=== PATIENT | female | born 1940 | race Caucasian/White ===

== ENCOUNTER → 2016-05-18 | Outpatient (CLI) | payer MEDICARE, BC ==
[~2016-05-18] MED LIST: ALPR0.25 PO; ATOR20TA58 PO; CONTRAST GIVEN MC PRN; ESCI20TA PO; GLIM2TAB2 PO; IOHEXOL 300 MG/ML 50 ML VIAL. IT ONE; LIDOCAINE 1% Multi-Dose 20 ML VIAL. ID ONE; PANT40TA5 PO; QUIN10TA7 PO; SITA100T PO; SOLI10TA PO; ZONI100C PO
--- NOTE | 2016-05-18 11:26 | KCIC ---
PROCEDURE Fluoroscopic guided lumbar puncture for cervical myelography; cervical spine CT myelogram. HISTORY Neck pain and right upper extremity weakness. TECHNIQUE The risks of the procedure were discussed with the patient and written and verbal consent was obtained. A time-out was performed. Fluoroscopic imaging of the cervical spine was performed and a site was selected for needle entry. The skin was sterilely prepped, draped and infiltrated with 1 percent lidocaine. A 25 gauge needle was advanced into the thecal sac and appropriate needle tip position was confirmed with spontaneous yield of cerebral spinal fluid within the needle hub. 9 cc Omnipaque 300 intrathecal contrast was injected. The needle was removed and a sterile bandage was placed at the needle entry site. The contrast column was then advanced to the cervical levels and frontal on, bilateral oblique and lateral images were obtained. A total of 3 fluoroscopic images were obtained. The total fluoroscopy time was 1 minutes and 33 seconds. The patient was transferred to the CT suite for the post injection CT portion of the exam. The patient tolerated the procedure without difficulty and was discharged in stable condition. One or more of the following individualized dose reduction techniques were utilized for this examination: 1. Automated exposure control; 2. Adjustment of the mA and/or kV according to patient size; 3. Use of iterative reconstruction technique. COMPARISON None. FINDINGS There is minimal anterolisthesis of C3 on C4, C6 on C7, and C7 on T1. There is degenerative endplate remodeling with disc space narrowing and Schmorl's node formation at the majority of the cervical levels, with relative preservation of C2-C3. There is deformation of the spinal cord at multiple levels, predominately C5-C6. This is described in detail below. There is no fracture. There is no suspicious osseous lesion. There is calcified plaque within the left carotid bifurcation. The lung apices are unremarkable. There is contrast within the anterior median fissure of the cervical cord extending from C4-C5 to the mid aspect of C5, likely due a prominent median fissure in the setting of myelomalacia. At C2-C3, there is a disc bulge with suspected superimposed right foraminal disc protrusion. There is mild right facet arthropathy. There is mild right foraminal stenosis. At C3-C4, there is a diffuse disc bulge and endplate osteophytosis. There is moderate right facet arthropathy. There is bilateral uncovertebral arthropathy. There is thickening of the ligamentum flavum. There is moderate to severe bilateral foraminal stenosis. There is deformation of the ventral aspect of the spinal cord with moderate central canal stenosis measuring 7.5 mm in anterior-posterior dimension. At C4-C5, there is a left paracentral to foraminal disc protrusion superimposed on a diffuse disc bulge and endplate osteophytosis. There is mild right and [id number] left facet arthropathy. There is left uncovertebral arthropathy. There is mild to moderate right and moderate to severe left foraminal stenosis. There is deformation of the spinal cord with mild central canal stenosis measuring 8.8 mm in anterior-posterior dimension. At C5-C6, there is a broad-based posterior central to left paracentral disc protrusion and osteophyte complex superimposed on a diffuse disc bulge and endplate osteophytosis. There is mild facet arthropathy. There is left greater than right uncovertebral arthropathy. There is severe bilateral foraminal stenosis. There is deformation of the spinal cord with moderate central canal stenosis measuring 6.5 mm in anterior-posterior dimension. At C6-C7, there is a left paracentral disc protrusion and osteophyte complex superimposed on a disc bulge and endplate osteophytosis. There is bilateral uncovertebral arthropathy. There is mild to moderate bilateral foraminal stenosis. There is deformation of the left ventral aspect of the spinal cord with mild central canal stenosis measuring 8.9 mm in anterior-posterior dimension. At C7-T1, there is a right paracentral disc protrusion superimposed on a disc bulge and endplate osteophytosis. There is mild facet arthropathy. There is uncovertebral arthropathy. There is mild right foraminal stenosis. IMPRESSION Multilevel degenerative change within the cervical spine, described in detail above. This results in mild right foraminal stenosis at C2-C3, moderate to severe bilateral foraminal and moderate central canal stenosis at C3-C4, mild to moderate right and moderate to severe left foraminal and mild central canal stenosis at C4-C5, severe bilateral foraminal stenosis and moderate central canal stenosis at C5-C6, mild to moderate bilateral foraminal and mild central canal stenosis at C6-C7, and mild right foraminal stenosis at C7-T1. Electronically signed by: Caroline Wells (May 18, 2016 11:25:00)
== END | disposition home or self-care (01) ==
LOC: KCIC 09:09
PROVIDERS: ATTEND Neurological Surgery
DX: M48.02 Spinal stenosis, cervical region (principal)
CPT/HCPCS: 72126; 72240; Q9967